=== PATIENT | female | born 1975 | race Hispanic/Latino ===

== ENCOUNTER 2023-12-15 13:27 | Emergency (ER) | payer BC ==
[~2023-12-15] VITALS: Ht 160 cm; Wt 93.0 kg
[2023-12-15 14:29] LABS: BASOPHILS # (AUTO) 0.02 K/uL (0.00-0.20); BASOPHILS % (AUTO) 0.2 % (0.0-5.0); EOSINOPHILS # (AUTO) 0.29 K/uL (0.00-0.70); EOSINOPHILS % (AUTO) 3.6 % (0.0-8.0); HEMATOCRIT 32.1 % (36-48); IMMATURE GRANULOCYTE ABSOLUTE 0.03 K/uL (0-1); LYMPHOCYTES # (AUTO) 2.2 K/uL (1.0-4.8); LYMPHOCYTES % (AUTO) 27.9 % (21.0-51.0); MEAN CORPUSCULAR HEMOGLOBIN 29.3 pg (27.0-33.0); MEAN CORPUSCULAR HGB CONC 34.3 g/dL (32.0-36.0); MEAN CORPUSCULAR VOLUME 85.4 fL (79-99); MONOCYTES # (AUTO) 0.6 K/uL (0.1-1.0); MONOCYTES % (AUTO) 7.5 % (3.0-13.0); NEUTROPHILS # (AUTO) 4.9 K/uL (1.8-7.7); NEUTROPHILS % (AUTO) 60.4 % (40.0-77.0); PLATELET COUNT (AUTO) 272 K/uL (130-400); RED BLOOD CELL COUNT(AUTO) 3.76 MIL/uL (4.00-5.50); RED CELL DISTRIBUTION WIDTH 12.6 % (11.0-15.5)
[2023-12-15 14:43] LABS: CREATININE 0.8 mg/dL (0.5-1.0); POTASSIUM 3.7 mmol/L (3.5-5.1)
[2023-12-15 14:48] LABS: ALBUMIN 3.3 g/dL (3.5-5.0); BILIRUBIN,TOTAL 0.4 mg/dL (0.2-1.0); TOTAL PROTEIN, SERUM 7.1 g/dL (6.0-8.3)
[2023-12-15] MEDS ORDERED: GABA300C PO (16:31)
[2023-12-15] MEDS ORDERED: PRED50TA2 PO (16:31)
[2023-12-15 16:40] VITALS: BP 111/62; PULSE 85; RESP 17; O2SAT 99
== END 2023-12-15 16:39 | disposition home or self-care (01) ==
LOC: EDH 13:27
DX: M79.605 Pain in left leg (principal); E11.9 Type 2 diabetes mellitus without complications; I10 Essential (primary) hypertension
CPT/HCPCS: 36415; 80053; 85025; 93971

== ENCOUNTER 2024-04-01 07:46 | Emergency (ER) | payer BC ==
[~2024-04-01] VITALS: Ht 160 cm; Wt 85.7 kg
[~2024-04-01 07:46] MED LIST: GABA300C PO; PRED50TA2 PO
[2024-04-01] MEDS: KETOROLAC 60 MG VIAL (30MG/ML) IM ONE (08:40)
[2024-04-01 12:18] VITALS: BP 116/66; PULSE 73; RESP 19; O2SAT 98
== END 2024-04-01 12:36 | disposition home or self-care (01) ==
LOC: EDH 07:46
DX: S82.491A Other fracture of shaft of right fibula, initial encounter for closed fracture (principal); S93.401A Sprain of unspecified ligament of right ankle, initial encounter; E11.9 Type 2 diabetes mellitus without complications; I10 Essential (primary) hypertension; Z79.899 Other long term (current) drug therapy; Z90.710 Acquired absence of both cervix and uterus; Z98.890 Other specified postprocedural states; X50.1XXA Overexertion from prolonged static or awkward postures, initial encounter; Y93.89 Activity, other specified; Y92.89 Other specified places as the place of occurrence of the external cause; Y99.8 Other external cause status
CPT/HCPCS: 99284; 29515; 73610; 73630; 73521; 73562; 96372; J1885

== ENCOUNTER 2024-04-28 19:49 | Emergency (ER) | payer BC ==
[~2024-04-28] VITALS: Ht 160 cm; Wt 86.2 kg
[2024-04-28 19:52] VITALS: BP 110/44; PULSE 92; RESP 20
[2024-04-28 21:01] LABS: BASOPHILS # (AUTO) 0.01 K/uL (0.00-0.20); BASOPHILS % (AUTO) 0.1 % (0.0-5.0); EOSINOPHILS # (AUTO) 0.56 K/uL (0.00-0.70); EOSINOPHILS % (AUTO) 5.5 % (0.0-8.0); IMMATURE GRANULOCYTE ABSOLUTE 0.02 K/uL (0-1); LYMPHOCYTES % (AUTO) 29.4 % (21.0-51.0); MEAN CORPUSCULAR HEMOGLOBIN 28.4 pg (27.0-33.0); MEAN CORPUSCULAR HGB CONC 33.7 g/dL (32.0-36.0); MEAN CORPUSCULAR VOLUME 84.1 fL (79-99); MONOCYTES # (AUTO) 0.9 K/uL (0.1-1.0); MONOCYTES % (AUTO) 8.6 % (3.0-13.0); NEUTROPHILS # (AUTO) 5.7 K/uL (1.8-7.7); NEUTROPHILS % (AUTO) 56.2 % (40.0-77.0); PLATELET COUNT (AUTO) 317 K/uL (130-400); RED BLOOD CELL COUNT(AUTO) 4.16 MIL/uL (4.00-5.50); RED CELL DISTRIBUTION WIDTH 12.6 % (11.0-15.5); WHITE BLOOD COUNT (AUTO) 10.2 K/uL (4.8-10.8)
[2024-04-28 21:11] LABS: CREATININE 0.8 mg/dL (0.5-1.0); POTASSIUM 3.7 mmol/L (3.5-5.1)
[2024-04-28 21:16] LABS: ALBUMIN 3.7 g/dL (3.5-5.0); BILIRUBIN,TOTAL 0.4 mg/dL (0.2-1.0); TOTAL PROTEIN, SERUM 7.3 g/dL (6.0-8.3)
[2024-04-28 21:29] LABS: INR 1.02 (0.85-1.15)
[2024-04-28 21:31] LABS: PARTIAL THROMBOPLASTIN TIME 29.8 SEC (26.3-35.5)
== END 2024-04-29 02:49 | disposition home or self-care (01) ==
LOC: EDH 19:49
DX: M79.89 Other specified soft tissue disorders (principal); E11.9 Type 2 diabetes mellitus without complications; E78.00 Pure hypercholesterolemia, unspecified; I10 Essential (primary) hypertension; Z79.899 Other long term (current) drug therapy; Z90.710 Acquired absence of both cervix and uterus
CPT/HCPCS: 36415; 73610; 80053; 85025; 85610; 85730; 93926; 93971

== ENCOUNTER → 2025-06-08 | Outpatient (CLI) | payer BC ==
--- NOTE | 2025-06-08 12:12 | HMCIMG ---
Right wrist ULTRASOUND INDICATION: Rule out ganglion cyst COMPARISON: None TECHNIQUE: Multiplanar sonographic images of the right wrist were obtained earlier in real-time using grayscale and color Doppler technique, and subsequently made available for review. FINDINGS/IMPRESSION: Right wrist demonstrated a small ganglion cyst measuring 1.9 x 0.8 x 1.3 cm. This is amenable for ultrasound-guided aspiration.
== END | disposition home or self-care (01) ==
LOC: RAH 11:18
PROVIDERS: ATTEND Family Medicine
DX: M67.431 Ganglion, right wrist (principal)
CPT/HCPCS: 76882